=== PATIENT | male | born 1955 | race Caucasian/White ===

== ENCOUNTER → 2018-05-15 | Outpatient (CLI) | payer OTHER ==
[~2018-05-15] MED LIST: ATEN25TA PO; LISI-465 PO; SIMV40TA PO
== END | disposition home or self-care (01) ==
LOC: CFH 06:40
PROVIDERS: ATTEND Internal Medicine Critical Care Medicine
DX: I35.1 Nonrheumatic aortic (valve) insufficiency (principal); I11.9 Hypertensive heart disease without heart failure; I26.99 Other pulmonary embolism without acute cor pulmonale; E78.5 Hyperlipidemia, unspecified
CPT/HCPCS: 93306